=== PATIENT | male | born 1970 | race Caucasian/White ===

== ENCOUNTER 2024-03-10 08:56 | Emergency (ER) | payer OTHER ==
[~2024-03-10] VITALS: Ht 172.7 cm; Wt 86.2 kg
[2024-03-10 09:10] VITALS: BP 134/80; TEMP 98.7
[2024-03-10] MEDS ORDERED: FLUC100T8 PO (10:08)
[2024-03-10 10:14] VITALS: O2SAT 97
== END 2024-03-10 10:14 | disposition home or self-care (01) ==
LOC: ER 08:56
DX: I88.9 Nonspecific lymphadenitis, unspecified (principal); M54.2 Cervicalgia; Z88.0 Allergy status to penicillin